=== PATIENT | female | born 1950 | race Caucasian/White ===

== ENCOUNTER 2016-12-31 15:37 | Observation (INO) | payer OTHER, MEDICARE ==
[~2016-12-31] VITALS: Ht 172.7 cm; Wt 100.4 kg
[~2016-12-31 15:37] MED LIST: AMARYL2 MG PO; AMBIEN10 MG PO; ARIMIDEX1 MG PO; ASMANEX TW200 MICRO1 IH; ATIVAN0.5 MG PO; B-COMPLEX-VITA1 EACH PO; CLARITIN10 MG PO; CO Q-1010 MG PO; COLACE100 MG PO; CRESTOR20 MG PO; DAILY VALUE1 EACH PO; DAILY VITAMIN1 EAC8 PO; FLONASE16 G1 BOTH NARES; FLOVENT 22120 INHALA IH; FUROSEMIDE20 MG PO; GLIMEPIRIDE2 MG PO; GLUCOPHAGE XR750 MG PO; HYDROCODON-ACE1 EAC7 PO; LEVO-T100 MCG PO; LEVOTHYROXINE75 MCG PO; LISINOPRIL; LOPRESSOR25 MG PO; METFORMIN HCL750 MG PO; NEURONTIN300 MG PO; NOLVADEX20 MG PO; PERCOCET 5/31 TABLET PO; PLAVIX75 MG PO; PRILOSEC20 MG PO; PRINIVIL20 MG PO; PRINZIDE 20-121 EACH PO; PROAIR HFA8.5 GM IH; PROTONIX40 MG PO; SINGULAIR10 MG PO; ST. JOSEPH ASPI81 MG PO; TRANSDERM-SCO1 PATCH TD; TYLENOL EXTRA500 MG PO; VENTOLIN HFA18 GM IH; XANAX0.25 MG PO; XANAX0.5 MG PO; ZOFRAN ODT4 MG PO
[2016-12-31 16:15] LABS: HEMATOCRIT 40.5 % (36.0-46.0); MCH 29.6 PG (29.0-34.0); MCHC 33.3 G/DL (30.0-36.0); MCV 88.8 FL (83-99); MEAN PLAT.VOLUME 10.6 uM^3 (9.5-12.4); PLATELET COUNT 232 K/uL (156-360); RBC DIS.WIDTH-CV 12.7 % (11.8-14.6); RBC DIS.WIDTH-SD 41.5 % (39-53); RED BLOOD COUNT 4.56 M/uL (3.80-5.20)
[2016-12-31 16:23] LABS: CHLORIDE 104 mEq/L (99-109); POTASSIUM 4.3 mEq/L (3.7-5.4); SODIUM 139 mEq/L (136-147)
[2016-12-31 16:25] LABS: GLUCOSE 172 mg/dL (70-99)
[2016-12-31 16:26] LABS: ANION GAP 13 MEQ/L (2-14)
[2016-12-31 16:29] LABS: GFR ESTIMATE (CALCULATED) > 59 mL/min/
[2016-12-31 16:30] LABS: UREA NITROGEN (BUN) 16 mg/dL (9-23)
[2016-12-31 16:36] LABS: TROP-I INTERPRETATION NEGATIVE; TROPONIN-I < 0.01 ng/mL (0.0-0.30)
[2016-12-31 18:23] LABS: ADD MIUA? YES; BILIRUBIN NEGATIVE; BLOOD NEGATIVE; GLUCOSE (STRIP) NEGATIVE; KETONES 20; LEUKOCYTES NEGATIVE; NITRITE NEGATIVE; PROTEIN (STRIP) 30; SPECIFIC GRAVITY 1.023 (1.000-1.030); UROBILINOGEN 0.2 MG/DL (0.2-1.0)
[2016-12-31 18:27] LABS: COLOR DK YELLOW ((YELLOW))
[2016-12-31 18:34] LABS: BACTERIA RARE /HPF; EPITHELIAL CELLS 1+ /HPF; HYALINE CASTS 0-5 /LPF; MUCUS TRACE /LPF; RED BLOOD CELLS 0-5 /HPF (0-5); UCUL ADDED? NO; WHITE BLOOD CELLS 0-5 /HPF (0-5)
[2016-12-31] MEDS ORDERED: ALBUTEROL2.5 MG/3 M IH (21:34)
[2016-12-31] MEDS ORDERED: ADVAIR 250/501 DISK IH ×2 (21:35→21:36)
[2016-12-31] MEDS ORDERED: PRINIVIL20 MG PO (22:10)
[2016-12-31] MEDS ORDERED: PROAIR HFA8.5 GM IH (22:13)
[2016-12-31] MEDS ORDERED: SINGULAIR10 MG PO (22:13)
[2016-12-31 22:45] VITALS: BP 158/70
[2016-12-31 23:47] LABS: POINT-OF-CARE METER ID UU14162513
[2017-01-01 04:00] VITALS: BP 131/79
[2017-01-01 07:29] VITALS: BP 129/60
[2017-01-01 08:05] LABS: POINT-OF-CARE METER ID UU14162513
[2017-01-01] MEDS ORDERED: ZOFRAN4 MG PO (09:52)
[2017-01-01] MEDS ORDERED: ANTIVERT25 MG PO (09:52)
[2017-01-01 10:52] LABS: C DIFF TOXIN NEGATIVE (NEGATIVE); PROBE CHECK PASS; SPECIMEN PROCESSING CONTROL PASS
== END 2017-01-01 11:20 | disposition home or self-care (01) ==
LOC: EME → EDBD 15:37 → EME 17:39 → EDOF 21:02 → ENRESERV 21:03 → 5WEST 22:36
PROVIDERS: Emergency Medicine; Hospitalist
DX: H81.10 Benign paroxysmal vertigo, unspecified ear (principal); R11.2 Nausea with vomiting, unspecified; R19.7 Diarrhea, unspecified; R10.30 Lower abdominal pain, unspecified; R26.9 Unspecified abnormalities of gait and mobility; I25.10 Atherosclerotic heart disease of native coronary artery without angina pectoris; I10 Essential (primary) hypertension; E78.5 Hyperlipidemia, unspecified; Z95.828 Presence of other vascular implants and grafts; G47.33 Obstructive sleep apnea (adult) (pediatric); Z91.19 Patient's noncompliance with other medical treatment and regimen; J44.9 Chronic obstructive pulmonary disease, unspecified; K21.9 Gastro-esophageal reflux disease without esophagitis; Z85.3 Personal history of malignant neoplasm of breast; Z86.718 Personal history of other venous thrombosis and embolism; G89.29 Other chronic pain; M54.5 Low back pain; M16.10 Unilateral primary osteoarthritis, unspecified hip; E11.9 Type 2 diabetes mellitus without complications; E03.9 Hypothyroidism, unspecified; Z87.891 Personal history of nicotine dependence; Z88.0 Allergy status to penicillin; Z88.8 Allergy status to other drugs, medicaments and biological substances; Z91.09 Other allergy status, other than to drugs and biological substances; Z79.84 Long term (current) use of oral hypoglycemic drugs; Z79.82 Long term (current) use of aspirin; Z79.810 Long term (current) use of selective estrogen receptor modulators (SERMs)
CPT/HCPCS: 70450; 74176; 80048; 81003; 82948; 84484; 85027; 87493; 93005; 94640; 99202; 99281; 99285; G0378; J0780; J1200; J2405; J2765; J7030